=== PATIENT | female | born 2000 | race Caucasian/White ===

== ENCOUNTER 2019-07-07 14:58 | Emergency (ER) | payer OTHER ==
[2019-07-07 15:32] VITALS: BP 111/70
--- NOTE | 2019-07-07 15:36 | UC ---
Complaint Female HPI - HPI Summary HPI Summary: Burning on urination over the past day. Pt had a UTI earlier in the week diagnosed by the [facility] and she was started on cephalexin twice a day for 3 days. The patient also states she has had a histyory of Bacterial Vaginosis and thinks she might have it again because she's had some light green foul-smelling vaginal discharge. Nurse's notes:PT WAS TREATED EARLIER IN THE WEEK FOR A UTI AT [facility]. SHE COMPLEATED A THREE DAY COURSE OF AN ANTIBIOTIC - SHE IS NOT SURE OF THE NAME. STILL HAVING BURNING WITH URINATION AND LOWER ABDOMINAL PAIN- WORSE ON THE LEFT. HAVING WHITE VAGINAL DISCHARGE, SHE HAS NOTICED AN ODER WELL. . PT HAD PNEUMONIA ABOUT THREE WEEKS AGO . SHE DEVELOPED A YEAST INFECTION AND WAS TREATED BY HER PCP FOR THAT. - History Of Current Complaint Chief Complaint: UCGU Stated Complaint: URINARY Time Seen by Provider: 07/07/19 15:05 Hx Obtained From: Patient Hx Last Menstrual Period: 06/25/19 ?: No Onset/Duration: Gradual Onset Timing: Intermittent Severity Initially: Mild Severity Currently: Mild Pain Intensity: 4 Character: Burning Aggravating Factor(s): Effort, Urination Alleviating Factor(s): Nothing Associated Signs And Symptoms: Positive: Vaginal Bleeding/Discharge - Light greenish vaginal discharge., Vaginal Discharge - Allergies/Home Medications Allergies/Adverse Reactions: Allergies Allergy/AdvReac Type Severity Reaction Status Date / Time sesonal Allergy Unknown Unknown Uncoded 07/07/19 15:17 Reaction Details Home Medications: Home Medications Amphetamine MIXED SALT TAB* [Adderall TAB*] 10 mg PO DAILY 07/07/19 [History Confirmed 07/07/19] Norethindrone-E.estradiol-Iron [Junel Fe 10/22 1-20 mg-Mcg] 1 tab PO DAILY [History Confirmed 07/07/19] PMH/Surg Hx/FS Hx/Imm Hx Previously Healthy: Yes - Surgical History Surgical History: Yes Surgery Procedure, Year, and Place: WISDOM TEETH EXTRACTIONS - Family History Known Family History: Positive: Respiratory Disease - Social History Occupation: Student Lives: Dormitory/Roommates Alcohol Use: Occasionally Alcohol Amount: once a week Substance Use Type: Marijuana Substance Use Comment - Amount & Last Used: ONCE A DAY Smoking Status (MU): Never Smoked Tobacco - Immunization History Most Recent Influenza Vaccination: none Review of Systems All Other Systems Reviewed And Are Negative: Yes Genitourinary: Positive: Dysuria, Frequency, Vaginal/Penile Burning, Vaginal/ Penile Discharge - Greenish vaginal discharge. Is Patient Immunocompromised?: No Physical Exam Triage Information Reviewed: Yes Appearance: Well-Appearing, No Pain Distress, Well-Nourished Vital Signs: Initial Vital Signs Temp 98.3 F 07/07/19 15:20 Pulse 94 07/07/19 15:20 Resp 18 07/07/19 15:20 BP 111/70 07/07/19 15:20 Pulse Ox 100 07/07/19 15:20 Vital Signs Reviewed: Yes Eyes: Positive: Conjunctiva Clear ENT: Positive: Hearing grossly normal, Pharynx normal, TMs normal, Uvula midline Neck: Positive: Supple, Nontender, No Lymphadenopathy Respiratory: Positive: Lungs clear, Normal breath sounds, No respiratory distress, No accessory muscle use - I Cardiovascular: Positive: RRR, No Murmur, Pulses Normal - was, Brisk Capillary Refill Abdomen Description: Positive: Nontender, No Organomegaly, Soft - Is. Negative : CVA Tenderness (R), CVA Tenderness (L), Hepatomegaly, Splenomegaly Bowel Sounds: Positive: Present Pelvic Exam: Positive: External Exam Normal, No Cerv. Motion Tender, Discharge - Light greenish vaginal discharge and vaginal canal., Tender Adnexa - Minimally tender left adnexa. No cervical motion tenderness. Musculoskeletal Exam: Normal Neurological Exam: Normal Psychological Exam: Normal Skin Exam: Normal Complaint Female Dx - Course Course Of Treatment: Patient has been comfortable here. Because of her history of Gardnerella and the greenish discharge I am going to treat her with metronidazole 500 mg by mouth twice a day 7 days. We will send her urine for a culture. She is to follow up at the [facility] if no improvement in 3 or 4 days. - Differential Dx/Diagnosis Provider Diagnosis: Bacterial vaginosis, Dysuria Discharge ED - Sign-Out/Discharge Documenting (check all that apply): Patient Departure All imaging exams completed and their final reports reviewed: No Studies - Discharge Plan Condition: Stable Disposition: HOME Prescriptions: metroNIDAZOLE * [Flagyl] 500 mg PO BID 7 Days #14 tablet Patient Education Materials: Bacterial Vaginosis (ED) Referrals: No Primary Care Phys,NOPCP [Primary Care Provider] - SANGEETA RODRÍGUEZ [[employer], [employer], OTHER] - Additional Instructions: Follow up at the [facility] if any worsening symptoms. We will call you if the urine culture comes back showing a urinary Tract Infection. Go to the ER if you develop fever, chills worsening pain. - Billing Disposition and Condition Condition: STABLE Disposition: Home
== END 2019-07-07 16:16 | disposition home or self-care (01) ==
LOC: UCCORT 14:58
DX: N76.0 Acute vaginitis (principal); R30.0 Dysuria; Z91.09 Other allergy status, other than to drugs and biological substances
CPT/HCPCS: 81003; 84702; 87086; 87480; 87510; 87660; 99212; G0463